=== PATIENT | female | born 1995 | race African-American/Black ===

== ENCOUNTER 2018-01-11 10:33 | Emergency (ER) | payer OTHER ==
[~2018-01-11] VITALS: Ht 157.5 cm; Wt 52.2 kg
[2018-01-11] MEDS ORDERED: PREDNISONE 20 M20 MG PO (10:48)
[2018-01-11] MEDS ORDERED: ULTRAM 50MG TAB50 MG PO (10:48)
[2018-01-11] MEDS ORDERED: PENICILLIN VK500 M1 PO (10:48)
== END 2018-01-11 11:16 | disposition home or self-care (01) ==
LOC: ER 10:33
DX: J02.0 Streptococcal pharyngitis (principal); F17.200 Nicotine dependence, unspecified, uncomplicated